=== PATIENT | female | born 1940 | race Hispanic/Latino ===

== ENCOUNTER 2016-12-15 09:05 | Day surgery (SDC) | payer MEDICARE ==
[2016-12-09 11:01] VITALS: BMI 20.9
[2016-12-15] MEDS ORDERED: Propofol 10 mg/ml Inj (20 ML) ONE (10:30)
[2016-12-15] MEDS ORDERED: Sodium Chloride 0.9% 1,000 ML IV SCH ×2 (11:00→11:15)
[2016-12-15 12:33] VITALS: BP 129/65; PULSE 66; RESP 16; TEMP 98; O2SAT 98
== END 2016-12-15 12:40 | disposition home or self-care (01) ==
LOC: ENDO 09:05
PROVIDERS: ATTEND Specialist
DX: Z12.11 Encounter for screening for malignant neoplasm of colon (principal); K64.4 Residual hemorrhoidal skin tags; K57.30 Diverticulosis of large intestine without perforation or abscess without bleeding; K64.8 Other hemorrhoids; K59.00 Constipation, unspecified; I10 Essential (primary) hypertension; G50.0 Trigeminal neuralgia
CPT/HCPCS: 45378; J2704; J7040

== ENCOUNTER 2018-04-21 13:34 | Outpatient (CLI) | payer MEDICARE | END 2018-04-21 13:35 | disposition home or self-care (01) | LOC: LAB 13:34 ==